=== PATIENT | female | born 1960 | race Caucasian/White ===

== ENCOUNTER 2018-04-22 01:23 | Emergency (ER) | payer OTHER ==
[2018-04-22 01:58] VITALS: BP 139/71; PULSE 94; TEMP 97.3; BMI 25.6
[2018-04-22] MEDS ORDERED: ALPRAZolam 0.25 MG TABLET PO ONE ×2 (02:06→03:58)
--- NOTE | 2018-04-22 02:10 | PDOC ---
History of Present Illness - General Chief Complaint: Psychiatric Stated Complaint: ANXIETY Time Seen by Provider: 04/22/18 01:41 - History of Present Illness Initial Comments: Shanika Damon is a 58yo woman with a PMH of GERD, anxiety, and depression who presents reporting an anxiety attack. She says that her symtpoms started one week ago and have been worsening throughout the week. Since yesterday, she has felt extremely nervous, unable to sleep or eat. She reports chest pain, SOB, and a clenched jaw as well. She has the exact same symptoms every time she has the anxiety attacks. She has been taking her clonazepam at home without resolution of her symptoms. Past History - Past Medical History Allergies/Adverse Reactions: Allergies Allergy/AdvReac Type Severity Reaction Status Date / Time Iodinated Contrast- Oral and Allergy Verified 04/22/18 01:51 IV Dye [IV Dye, Iodine Containing Contrast ] ondansetron HCl [From Zofran] Allergy "muscle Verified 04/22/18 01:51 stiffness" prochlorperazine edisylate Allergy "muscle Verified 04/22/18 01:51 [From Compazine] stiffness" prochlorperazine maleate Allergy "muscle Verified 04/22/18 01:51 [From Compazine] stiffness" Home Medications: Ambulatory Orders clonazePAM [Klonopin -] 0.5 mg PO DAILY 08/11/15 Paroxetine HCl [Paxil] 20 mg PO DAILY 04/22/18 Anemia: No Asthma: No Cancer: No Cardiac Disorders: No CVA: No COPD: No CHF: No Dementia: No Diabetes: No GI Disorders: Yes (acid reflux) Disorders: No HTN: No Hypercholesterolemia: No Liver Disease: No Psychiatric Problems: Yes (Depression) Seizures: No Thyroid Disease: No - Surgical History Abdominal Surgery: No Appendectomy: No Cardiac Surgery: No Cholecystectomy: No Lung Surgery: No Neurologic Surgery: No Orthopedic Surgery: No - Suicide/Smoking/Psychosocial Hx Smoking Status: No Smoking History: Never smoked Have you smoked in the past 12 months: No Number of Cigarettes Smoked Daily: 0 If you are a former smoker, when did you quit?: 4yrs ago Information on smoking cessation initiated: No Hx Alcohol Use: No Drug/Substance Use Hx: No Hx Substance Use Treatment: No Review of Systems - Review of Systems Comments:: General: No fevers, no chills, no weight or appetite change, no malaise HEENT: No changes in vision, no changes in hearing, no congestion, no sore throat CV: +chest pain, +palpitations, no LE edema Pulm: +SOB, no cough, no wheezing GI: +nausea/vomiting, no change in bowel habits, no melena : No frequency, no urgency, no dysuria Musc: No back pain, no joint swelling, no recent injury Skin: No rash, no lesions, no erythema Endo: No excessive thirst, no heat/cold intolerance Heme: No unusual bruising or bleeding, no swollen glands Neuro: No syncope, no numbness/tingling, no focal weakness Vasc: No claudication Psych: +anxiety, +nervous *Physical Exam - Vital Signs Last Vital Signs Temp Pulse Resp BP Pulse Ox 97.3 F L 94 H 19 139/71 98 04/22/18 01:23 04/22/18 01:23 04/22/18 01:23 04/22/18 01:23 04/22/18 01:23 - Physical Exam Comments: General: Appears very anxious HEENT: PERRL, EOMI, MMM, voice normal, normal neck ROM, no LAD Cards: RRR, no murmur appreciated Pulm: Comfortable on room air, clear to auscultation bilaterally Abd: Soft, nontender, nondistended Ext: Atraumatic. No LE edema. ROM intact. Strength 5/5 and equal bilaterally Vasc: Extremities WWP. Skin: Normal color, no rashes or lesions Neuro: A&Ox3, CN grossly intact, normal speech, motor/sensory grossly intact and symmetric Psych: Anxious Moderate Sedation - Procedure Monitoring Vital Signs: Procedure Monitoring Vital Signs Temperature 97.3 F L 04/22/18 01:23 Pulse Rate 94 H 04/22/18 01:23 Respiratory Rate 19 04/22/18 01:23 Blood Pressure 139/71 04/22/18 01:23 O2 Sat by Pulse Oximetry (%) 98 04/22/18 01:23 ED Treatment Course - LABORATORY CBC & Chemistry Diagram: 04/22/18 02:26 04/22/18 02:26 - RADIOLOGY Radiology Studies Ordered: Category Date Time Status CHEST X-RAY PORTABLE* [RAD] Stat Radiology 04/22/18 01:48 Ordered Medical Decision Making - Medical Decision Making 04/22/18 02:06 Shanika Damon is a 58yo woman with a PMH of GERD, depression, anxiety who presents with worsening anxiety for the past week. She also notes chest pain, SOB, and nausea/vomiting. - Reports that her symptoms are typical of her anxiety attacks; she has these same symptoms every time - Most likely known anxiety, but given age and symptoms need to rule out cardiac pathology - CBC, CMP, trop, EKG, CXR ordered - 0.25mg xanax for anxiety 04/22/18 03:24 - Feels significantly improved. - Labs pending 04/22/18 03:56 - Labs unremarkable. Trop negative. As symptoms have been present for over one day, one negative trop is sufficient to r/o ACS. - EKG and CXR reviewed, no concerning abnormalities noted - Reporting return of anxiety symptoms. Will give additional 0.25 alprazolam. Discussed follow up with regular psychiatrist within the next week for worsening symptoms, and Ms Damon agrees. Discussed with Dr Randolph. Dominique Wong PGY1 *DC/Admit/Observation/Transfer Diagnosis at time of Disposition: Anxiety - Discharge Dispostion Condition at time of disposition: Fair Decision to Admit order: No - Referrals Referrals: Marium Regan MD [Primary Care Provider] - - Patient Instructions Printed Discharge Instructions: DI for Anxiety -- Adult Additional Instructions: Discharge Instructions: - You were seen in the emergency department with anxiety - You had blood tests, an EKG and a chest xray to make sure there was not a medical cause of your anxiety, but all of your tests were normal - It is recommended that you make an appointment with a endocrinologist to have a cardiac evaluation to make sure there is no underlying heart disease. - You should make an appointment to follow up with your psychiatrist as soon as possible, ideally within the next 2-3 days. - Seek immediate medical care if you have any additional chest pain, shortness of breath, or any other medical emergency. - Post Discharge Activity
[2018-04-22] MEDS ORDERED: ALPRAZolam 0.25 MG TABLET ONE ×2 (02:26→04:12)
[2018-04-22] MEDS ORDERED: SODIUM CHLORIDE 0.9% 500 ML INFUS.BAG IV ONE (02:39)
--- NOTE | 2018-04-22 02:58 | PDOC ---
Attending Attestation - Resident Resident Name: Dominique Wong - ED Attending Attestation I have performed the following: I have examined & evaluated the patient, The case was reviewed & discussed with the resident, I agree w/resident's findings & plan - HPI HPI: 04/22/18 03:38 58 yo female with anxiety and associated chest pressure, pt states she has similar symptoms with all of her panic attacks. - Physicial Exam PE: 04/22/18 03:39 agree with resident exam - Medical Decision Making 04/22/18 03:39 58 yo female with c/o panic attacks and chest tightness EKG shows a nsr at 77 bpm pt improved after xanax 0.25 mg plan for d/c home with psychiatric follow up
[2018-04-22 03:04] LABS: BASO % 0.2 % (0-2.0); EOS % 0.2 % (0-4.5); HEMATOCRIT 39.6 % (32.4-45.2); LYMPH % 19.1 % (8-40); MCH 33.4 pg (25.7-33.7); MCHC 35.2 g/dl (32.0-36.0); MEAN CELL VOLUME 94.9 fl (80-96); MEAN PLT VOLUME 9.8 fl (7.5-11.1); MONO % 5.6 % (3.8-10.2); NEUT % 74.9 % (42.8-82.8); PLATELET COUNT 200 K/MM3 (134-434); RBC 4.18 M/mm3 (3.60-5.2); RDW 12.5 % (11.6-15.6); WHITE BLOOD COUNT 4.7 K/mm3 (4.0-10.0)
[2018-04-22 03:36] LABS: ALBUMIN 4.1 g/dl (3.4-5.0); ALK PHOS 103 U/L (45-117); ANION GAP 7 MMOL/L (8-16); BILIRUBIN,TOTAL 0.4 mg/dL (0.2-1); BLOOD UREA NITROGEN 9 mg/dL (7-18); CALCIUM 8.8 mg/dL (8.5-10.1); CHLORIDE 107 mmol/L (98-107); CO2 27 mmol/L (21-32); CREATININE 0.7 mg/dL (0.55-1.3); GLUCOSE,RANDOM 123 mg/dL (74-106); POTASSIUM 3.7 mmol/L (3.5-5.1); SGOT/AST 24 U/L (15-37); SGPT/ALT 29 U/L (13-61); SODIUM 141 mmol/L (136-145)
--- NOTE | 2018-04-22 14:16 | EKG ---
Test Reason : Blood Pressure : / mmHG Vent. Rate : 077 BPM Atrial Rate : 077 BPM P-R Int : 140 ms QRS Dur : 072 ms QT Int : 378 ms P-R-T Axes : 033 003 026 degrees QTc Int : 427 ms NORMAL SINUS RHYTHM NORMAL ECG WHEN COMPARED WITH ECG OF 23-OCT-2013 21:14, NO SIGNIFICANT CHANGE WAS FOUND Confirmed by MILLI MANZANO MD ([id number]) on 04/22/2018 2:16:07 PM Referred By: Confirmed By:MILLI MANZANO MD
== END 2018-04-22 04:31 | disposition home or self-care (01) ==
LOC: JER 01:23
PROC: 3E0337Z Introduction of Electrolytic and Water Balance Substance into Peripheral Vein, Percutaneous Approach (ICD-10-PCS; principal; 2018-04-22)
DX: F41.9 Anxiety disorder, unspecified (principal); F32.9 Major depressive disorder, single episode, unspecified; K21.9 Gastro-esophageal reflux disease without esophagitis
CPT/HCPCS: 36415; 71045-TC-FY; 80053; 82550; 84484; 85025; 93005; 93010; 99282-25

== ENCOUNTER 2021-02-21 13:53 | Inpatient (IN) | payer OTHER ==
[2021-02-21 14:30] VITALS: BMI 23.8
[2021-02-21] MEDS ORDERED: SODIUM CHLORIDE 1,769 ML IV ONE (16:32)
[2021-02-21] MEDS ORDERED: MIDAZOLAM HCL 2 MG/2 ML SINGLE DOSE VIAL IVPUSH ONE (16:54)
[2021-02-21] MEDS ORDERED: MIDAZOLAM HCL 2 MG/2 ML SINGLE DOSE VIAL ONE (16:57)
[2021-02-21 17:23] LABS: BASO % 0.5 % (0-2.0); EOS % 0.4 % (0-4.5); HEMATOCRIT 39.5 % (32.4-45.2); HEMOGLOBIN 13.1 GM/dL (10.7-15.3); LYMPH % 28.2 % (8-40); MCH 31.7 pg (25.7-33.7); MCHC 33.3 g/dl (32.0-36.0); MEAN CELL VOLUME 95.2 fl (80-96); MONO % 7.8 % (3.8-10.2); NEUT % 63.1 % (42.8-82.8); PLATELET COUNT 245 10^3/uL (134-434); RBC 4.15 M/mm3 (3.60-5.2); RDW 13.1 % (11.6-15.6); WHITE BLOOD COUNT 5.4 K/mm3 (4.0-10.0)
[2021-02-21 17:36] LABS: INR 1.06 (0.83-1.09); PROTHROMBIN TIME (PATIENT) 12.4 SEC (9.7-13.0)
[2021-02-21 17:39] LABS: ACTIVATED PTT 28.4 SECONDS (25.2-36.5)
[2021-02-21 17:42] LABS: CHLORIDE 108 mmol/L (98-107); SODIUM 141 mmol/L (136-145)
[2021-02-21 17:43] LABS: CALCIUM 9.3 mg/dL (8.5-10.1)
[2021-02-21 17:44] LABS: ANION GAP 5 MMOL/L (8-16); BLOOD UREA NITROGEN 9.1 mg/dL (7-18); CO2 28 mmol/L (21-32); GLUCOSE,RANDOM 95 mg/dL (74-106)
[2021-02-21 17:47] LABS: CREATININE 0.7 mg/dL (0.55-1.3); SGOT/AST 31 U/L (15-37); SGPT/ALT 29 U/L (13-61)
[2021-02-21 17:49] LABS: BILIRUBIN,TOTAL 0.5 mg/dL (0.2-1); TOT PROT 7.2 g/dl (6.4-8.2)
[2021-02-21 17:50] LABS: ALK PHOS 93 U/L (45-117)
[2021-02-21] MEDS ORDERED: ACETAMINOPHEN 325 MG TABLET (FP) PO ONE (17:59)
[2021-02-21] MEDS ORDERED: ACETAMINOPHEN 325 MG TABLET (FP) ONE (19:37)
[2021-02-21] MEDS ORDERED: POLYETHYLENE GLYCOL (HEALTHYLAX) 3350 17 GM PACKET PO PRN (20:02)
[2021-02-21 20:14] LABS: BF GLUCOSE (CSF ONLY) 61 mg/dL (40-70)
[2021-02-21 20:33] LABS: CSF APPEARANCE CLEAR (CLEAR)
[2021-02-21 20:50] LABS: CSF WBC 0 mm3 (0-5)
[2021-02-21 20:51] LABS: CSF COLOR COLORLESS (COLORLESS)
[2021-02-21] MEDS ORDERED: HEPARIN NA (PORCINE) 5,000 UNITS/ML 1ML VIAL ONE (21:37)
[2021-02-21] MEDS ORDERED: POLYETHYLENE GLYCOL (HEALTHYLAX) 3350 17 GM PACKET ONE (21:37)
[2021-02-21] MEDS ORDERED: clonazePAM 0.5 MG TABLET PO PRN (21:42)
[2021-02-21] MEDS ORDERED: ACETAMINOPHEN INJECTION 100 ML IVPB ONE (22:21)
[2021-02-21] MEDS: ACETAMINOPHEN 1000 MG/100 ML VIAL IVPB PRN (22:23)
[2021-02-22 01:05] LABS: PH,URINE 6.5 (5.0-8.0); URINE APPEARANCE CLEAR; URINE BILIRUBIN NEGATIVE (NEGATIVE); URINE COLOR YELLOW; URINE GLUCOSE (UA) NEGATIVE (NEGATIVE); URINE KETONE TRACE (NEGATIVE); URINE LEUK ESTERASE NEGATIVE (NEGATIVE); URINE NITRITE NEGATIVE (NEGATIVE); URINE PROTEIN NEGATIVE (NEGATIVE); URINE UROBILINOGEN 0.2 mg/dL (0.2-1.0)
[2021-02-22] MEDS ORDERED: ACETAMINOPHEN INJECTION 100 ML IVPB ONE (06:47)
[2021-02-22] MEDS: ACETAMINOPHEN 1000 MG/100 ML VIAL IVPB PRN (06:53)
[2021-02-22] MEDS ORDERED: oxyCODONE HCL 5 MG TABLET ONE (09:16)
[2021-02-22] MEDS ORDERED: diazePAM 5 MG TABLET ONE (09:17)
[2021-02-22] MEDS: oxyCODONE HCL 5 MG TABLET PO PRN ×2 (09:29→16:18)
[2021-02-22] MEDS: diazePAM 5 MG TABLET PO PRN ×2 (09:29→12:04)
[2021-02-22] MEDS ORDERED: GABAPENTIN 300 MG CAPSULE PO SCH (10:00)
[2021-02-22] MEDS ORDERED: HEPARIN NA (PORCINE) 5,000 UNITS/ML 1ML VIAL SQ SCH (10:00)
[2021-02-22] MEDS: ACETAMINOPHEN 325 MG TABLET (FP) PO PRN ×2 (16:20→22:11)
[2021-02-23] MEDS: diazePAM 5 MG TABLET PO PRN ×2 (07:15→12:31)
[2021-02-23] MEDS: ACETAMINOPHEN 325 MG TABLET (FP) PO PRN (07:19)
[2021-02-23] MEDS: oxyCODONE HCL 5 MG TABLET PO PRN ×2 (08:33→15:52)
[2021-02-24] MEDS: diazePAM 5 MG TABLET PO PRN ×2 (01:52→10:06)
[2021-02-24] MEDS: oxyCODONE HCL 5 MG TABLET PO PRN ×4 (01:53→22:12)
[2021-02-24] MEDS ORDERED: LORazepam 0.5 MG TABLET PO ONE (06:16)
[2021-02-25] MEDS: diazePAM 5 MG TABLET PO PRN (04:57)
[2021-02-25] MEDS: oxyCODONE HCL 5 MG TABLET PO PRN (08:13)
[2021-02-25] MEDS: ACETAMINOPHEN 325 MG TABLET (FP) PO PRN (08:14)
[2021-02-25] MEDS ORDERED: GENTAMICIN SO4 80 MG/2 ML VIAL ONE ×3 (08:49→09:17)
[2021-02-25] MEDS ORDERED: BUPIVACAINE HCL/PF 0.5% (5MG/ML) 10 ML VIAL ONE ×2 (08:51→09:17)
[2021-02-25] MEDS ORDERED: THROMBIN (BOVINE) 20,000 UNIT VIAL TP ONE ×2 (08:51→09:17)
[2021-02-25] MEDS ORDERED: VANCOMYCIN 1,000 MG VIAL (RESTRICTED TO ID ONLY) ONE (08:52)
[2021-02-25] MEDS ORDERED: LIDOCAINE 1%/EPI 1:100000 (20 ML MULTI DOSE VIAL) ONE ×2 (08:52→13:46)
[2021-02-25] MEDS ORDERED: fentaNYL CITRATE 250 MCG/5 ML VIAL ONE (09:15)
[2021-02-25] MEDS ORDERED: MIDAZOLAM HCL 2 MG/2 ML SINGLE DOSE VIAL ONE ×2 (09:15→14:24)
[2021-02-25] MEDS ORDERED: LIDOCAINE 1%/EPI 1:100000 (50 ML MULTI DOSE VIAL) ONE ×3 (09:16→13:46)
[2021-02-25] MEDS ORDERED: SCOPOLAMINE HYDROBROMIDE 1 PATCH PATCH.TD72 ONE (09:19)
[2021-02-25] MEDS ORDERED: VANCOMYCIN 1,000 MG VIAL (RESTRICTED TO ID ONLY) IVPB ONE (09:30)
[2021-02-25] MEDS ORDERED: ceFAZolin SODIUM 1 GM VIAL IVPB ONE (09:45)
[2021-02-25] MEDS ORDERED: LIDOCAINE 1%/EPI 1:100000 (20 ML MULTI DOSE VIAL) INF ONE ×2 (10:00→11:45)
[2021-02-25] MEDS ORDERED: BUPIVACAINE LIPOSOME/PF (EXPAREL) 266 MG/20 ML VIAL ONE (10:39)
[2021-02-25] MEDS ORDERED: THROMBIN (BOVINE) 5,000 UNIT VIAL TP ONE (12:14)
[2021-02-25] MEDS ORDERED: BUPIVACAINE HCL/PF 0.5% (5 MG/ML) 30 ML VIAL IJ ONE (12:58)
[2021-02-25] MEDS ORDERED: BUPIVACAINE LIPOSOME/PF (EXPAREL) 266 MG/20 ML VIAL NR ONE (12:58)
[2021-02-25] MEDS ORDERED: NEOSTIGMINE METHYLSULFATE 0.5 MG/1 ML - 10 ML MDV ONE (13:15)
[2021-02-25] MEDS ORDERED: LIDOCAINE HCL 1% EPINEPHRINE 1:200,000 30 ML VIAL (PF) ONE (13:47)
[2021-02-25] MEDS ORDERED: MIDAZOLAM HCL 2 MG/2 ML SINGLE DOSE VIAL IVPUSH ONE (14:20)
[2021-02-25] MEDS ORDERED: DEXAMETHASONE SOD PHOSPHATE 4 MG/1 ML VIAL IVPUSH PRN (14:40)
[2021-02-25] MEDS ORDERED: oxyCODONE HCL 5 MG TABLET PO PRN ×3 (14:46→15:50)
[2021-02-25] MEDS ORDERED: ACETAMINOPHEN 325 MG TABLET (FP) PO PRN (14:46)
[2021-02-25] MEDS ORDERED: HYDROmorphone *PCA* 10MG/50ML DISP.SYRIN ONE (14:52)
[2021-02-25] MEDS ORDERED: HYDROmorphone *PCA* 10MG/50ML DISP.SYRIN PCA ONE (15:00)
[2021-02-25] MEDS ORDERED: ONDANSETRON 4 MG/2 ML VIAL IVPUSH PRN (15:50)
[2021-02-25] MEDS ORDERED: morphine CARPU-JECT 4 MG/1 ML DISP.SYRIN IVPUSH PRN (15:50)
[2021-02-25] MEDS ORDERED: diphenhydrAMINE HCL 25 MG CAPSULE (FP) PO PRN (15:50)
[2021-02-25] MEDS ORDERED: LACTATED RINGERS SOLUTION 1,000 ML/1,000 ML INFUS.BAG IV SCH (16:00)
[2021-02-25] MEDS ORDERED: CEFAZOLIN 1 GM/D5W 1 GM/50 ML BAG IVPB SCH (18:00)
[2021-02-25] MEDS: HEPARIN NA (PORCINE) 5,000 UNITS/ML 1ML VIAL SQ SCH (18:15)
[2021-02-25] MEDS ORDERED: CEFAZOLIN 1 GM in DEXTROSE 5%-WATER - 50 ML IVPB SCH (18:15)
[2021-02-25] MEDS: HYDROmorphone *PCA* 10MG/50ML DISP.SYRIN PCA SCH (18:15)
[2021-02-25] MEDS ORDERED: DEXTROSE 5%-WATER - 50 ML IVPB ONE (18:32)
[2021-02-25] MEDS ORDERED: ceFAZolin SODIUM 1 GM VIAL ONE (18:32)
[2021-02-25] MEDS: CEFAZOLIN 1 GM in DEXTROSE 5%-WATER - 50 ML IVPB SCH (18:34)
[2021-02-25] MEDS ORDERED: PT OWN MED DRAWER 7, Y5N ONE (20:23)
[2021-02-25] MEDS: DOCUSATE SODIUM 100 MG CAPSULE (FP) PO SCH (21:05)
[2021-02-26] MEDS ORDERED: ceFAZolin SODIUM 1 GM VIAL ONE ×3 (00:54→17:18)
[2021-02-26] MEDS ORDERED: DEXTROSE 5%-WATER - 50 ML IVPB ONE ×3 (00:54→17:18)
[2021-02-26] MEDS: CEFAZOLIN 1 GM in DEXTROSE 5%-WATER - 50 ML IVPB SCH ×3 (01:02→17:53)
[2021-02-26] MEDS: HEPARIN NA (PORCINE) 5,000 UNITS/ML 1ML VIAL SQ SCH ×3 (01:03→17:53)
[2021-02-26] MEDS: diazePAM 5 MG TABLET PO PRN ×2 (04:27→21:58)
[2021-02-26] MEDS: DOCUSATE SODIUM 100 MG CAPSULE (FP) PO SCH ×3 (06:50→21:15)
[2021-02-26 08:52] LABS: HEMATOCRIT 27.9 % (32.4-45.2); HEMOGLOBIN 9.6 GM/dL (10.7-15.3); MCH 32.8 pg (25.7-33.7); MCHC 34.5 g/dl (32.0-36.0); MEAN CELL VOLUME 95.2 fl (80-96); MEAN PLT VOLUME 8.7 fl (7.5-11.1); PLATELET COUNT 167 10^3/uL (134-434); RBC 2.93 M/mm3 (3.60-5.2); RDW 13.2 % (11.6-15.6)
[2021-02-26 09:04] LABS: CALCIUM 8.3 mg/dL (8.5-10.1)
[2021-02-26 09:05] LABS: BLOOD UREA NITROGEN 5.4 mg/dL (7-18)
[2021-02-26 09:08] LABS: CREATININE 0.5 mg/dL (0.55-1.3)
[2021-02-26] MEDS ORDERED: POLYETHYLENE GLYCOL (HEALTHYLAX) 3350 17 GM PACKET PO PRN (10:00)
[2021-02-26] MEDS: FOLIC ACID 1 MG TABLET (FP) PO SCH (10:51)
[2021-02-26] MEDS: FERROUS SO4 325 MG TABLET (FP) PO SCH (10:51)
[2021-02-26] MEDS: PHENAZOPYRIDINE HCL 100 MG TABLET (FP) PO SCH ×3 (10:51→17:53)
[2021-02-26] MEDS: HYDROmorphone *PCA* 10MG/50ML DISP.SYRIN PCA SCH (15:52)
[2021-02-27] MEDS ORDERED: ceFAZolin SODIUM 1 GM VIAL ONE ×2 (00:39→08:48)
[2021-02-27] MEDS ORDERED: DEXTROSE 5%-WATER - 50 ML IVPB ONE ×2 (00:40→08:48)
[2021-02-27] MEDS ORDERED: LORazepam 0.5 MG TABLET PO ONE ×2 (00:55→06:49)
[2021-02-27] MEDS: HEPARIN NA (PORCINE) 5,000 UNITS/ML 1ML VIAL SQ SCH ×2 (01:08→09:42)
[2021-02-27] MEDS: CEFAZOLIN 1 GM in DEXTROSE 5%-WATER - 50 ML IVPB SCH ×2 (01:08→09:42)
[2021-02-27] MEDS: diazePAM 5 MG TABLET PO PRN (05:32)
[2021-02-27] MEDS: DOCUSATE SODIUM 100 MG CAPSULE (FP) PO SCH ×2 (05:34→14:40)
[2021-02-27 08:33] LABS: BASO % 0.2 % (0-2.0); HEMATOCRIT 36.7 % (32.4-45.2); HEMOGLOBIN 12.6 GM/dL (10.7-15.3); LYMPH % 11.5 % (8-40); MCH 32.7 pg (25.7-33.7); MCHC 34.3 g/dl (32.0-36.0); MEAN CELL VOLUME 95.3 fl (80-96); MEAN PLT VOLUME 9.6 fl (7.5-11.1); MONO % 8.6 % (3.8-10.2); NEUT % 79.7 % (42.8-82.8); PLATELET COUNT 184 10^3/uL (134-434); RBC 3.85 M/mm3 (3.60-5.2); WHITE BLOOD COUNT 9.5 K/mm3 (4.0-10.0)
[2021-02-27 09:31] LABS: CALCIUM 8.8 mg/dL (8.5-10.1)
[2021-02-27 09:32] LABS: BLOOD UREA NITROGEN 4.7 mg/dL (7-18)
[2021-02-27 09:34] LABS: CREATININE 0.6 mg/dL (0.55-1.3)
[2021-02-27 09:35] LABS: BILIRUBIN,TOTAL 0.7 mg/dL (0.2-1); TOT PROT 6.3 g/dl (6.4-8.2)
[2021-02-27] MEDS: PHENAZOPYRIDINE HCL 100 MG TABLET (FP) PO SCH ×2 (09:42→14:40)
[2021-02-27] MEDS: FOLIC ACID 1 MG TABLET (FP) PO SCH (09:43)
[2021-02-27] MEDS: FERROUS SO4 325 MG TABLET (FP) PO SCH (09:43)
[2021-02-27 09:55] LABS: ALBUMIN 3.1 g/dl (3.4-5.0)
[2021-02-27] MEDS ORDERED: PCA PUMP NR ONE (12:16)
[2021-02-27 14:32] VITALS: BP 121/61; PULSE 96; TEMP 99.5
[2021-02-27] MEDS ORDERED: MIRTAZAPINE 15 MG TABLET (FP) PO SCH (22:00)
== END 2021-02-27 16:07 | disposition home or self-care (01) | DRG 321 ==
LOC: JER 13:53 → JERBED 19:17 → UNDOADMOB 19:17 → INTOOBSV 19:17 → J4S 02-22 11:37 → JERBED 02-22 11:37 → J4S 02-22 11:44 → OBSVTOIN 02-25 08:00
PROVIDERS: ADMIT Internal Medicine; ATTEND Internal Medicine
PROC: 0PB30ZZ Excision of Cervical Vertebra, Open Approach (ICD-10-PCS; 2021-02-25)
PROC: 0RG2071 Fusion of 2 or more Cervical Vertebral Joints with Autologous Tissue Substitute, Posterior Approach, Posterior Column, Open Approach (ICD-10-PCS; 2021-02-25)
PROC: 4A1004G Monitoring of Central Nervous Electrical Activity, Intraoperative, Open Approach (ICD-10-PCS; 2021-02-25)
PROC: 0RG10A0 Fusion of Cervical Vertebral Joint with Interbody Fusion Device, Anterior Approach, Anterior Column, Open Approach (ICD-10-PCS; principal; 2021-02-25 09:00)
PROC: 01N10ZZ Release Cervical Nerve, Open Approach (ICD-10-PCS; 2021-02-25 09:00)
DX: M47.12 Other spondylosis with myelopathy, cervical region (principal); M50.20 Other cervical disc displacement, unspecified cervical region; M53.2X2 Spinal instabilities, cervical region; N39.0 Urinary tract infection, site not specified; F41.9 Anxiety disorder, unspecified; I25.10 Atherosclerotic heart disease of native coronary artery without angina pectoris; M40.209 Unspecified kyphosis, site unspecified
CPT/HCPCS: 36415; 70450-TC; 71045-TC-FY; 72125-TC; 72156-TC; 76000-TC-FY; 80048; 80053; 81003; 82945; 83605; 84157; 84484; 85025; 85027; 85610; 85730; 86850; 86900; 86901; 87040; 87070; 87077; 87086; 87186; 87205; 87804; 93005; 93010; 94760; 97116-GP; 97161-GP; 99285-25; C9803; G0378; J0131; J1644; U0003; U0005

== ENCOUNTER 2021-04-03 08:10 | Emergency (ER) | payer OTHER ==
[2021-04-03 08:49] VITALS: BP 128/78; PULSE 88; TEMP 98.6; BMI 24.7
[2021-04-03] MEDS ORDERED: MAG HYDROX/ALH/SMC/DPHA/LIDO 240 ML MOUTHWASH MM ONE (08:58)
[2021-04-03] MEDS ORDERED: FAMOTIDINE 20 MG TABLET PO ONE (08:58)
[2021-04-03] MEDS ORDERED: MAG HYDROX/AL HYDROX/SIMETH 30 ML UNIT-DOSE CUP PO ONE (08:58)
[2021-04-03] MEDS ORDERED: FAMOTIDINE 20 MG TABLET ONE (09:10)
[2021-04-03] MEDS ORDERED: MAG HYDROX/ALH/SMC/DPHA/LIDO 240 ML MOUTHWASH MM SCH (12:00)
[2021-04-04 13:07] LABS: SARS-CoV-2 NAA Detected (Not Detected)
== END 2021-04-03 12:42 | disposition home or self-care (01) ==
LOC: JER 08:10
DX: U07.1 COVID-19 (principal); J02.9 Acute pharyngitis, unspecified
CPT/HCPCS: 87070; 99283-25; C9803; U0003; U0005

== ENCOUNTER 2021-05-04 11:18 | Emergency (ER) | payer OTHER ==
[2021-05-04 11:34] VITALS: BP 130/72; PULSE 86; BMI 21.9
[2021-05-04 11:38] VITALS: TEMP 97.6
[2021-05-04] MEDS ORDERED: SODIUM CHLORIDE 1,000 ML IV STA (12:36)
[2021-05-04 12:48] LABS: EPI CELLS 5 /uL (0-25.1); HYALINE CASTS 0 /uL (0-3.1); PH,URINE 6.5 (5.0-8.0); URINE APPEARANCE CLEAR; URINE BILIRUBIN NEGATIVE (NEGATIVE); URINE COLOR DK YELLOW; URINE GLUCOSE (UA) NEGATIVE (NEGATIVE); URINE KETONE NEGATIVE (NEGATIVE); URINE LEUK ESTERASE 2+ (NEGATIVE); URINE NITRITE POSITIVE (NEGATIVE); URINE PROTEIN NEGATIVE (NEGATIVE); URINE RBC 3 /uL (0-23.9); URINE WBC 134 /uL (0-25.8)
[2021-05-04 12:59] LABS: URINE BACTERIA 8.1 /uL (0-1359)
[2021-05-04 13:17] LABS: BASO % 0.6 % (0-2.0); EOS % 0.2 % (0-4.5); HEMATOCRIT 36.2 % (32.4-45.2); HEMOGLOBIN 12.3 GM/dL (10.7-15.3); LYMPH % 15.4 % (8-40); MCH 32.3 pg (25.7-33.7); MEAN CELL VOLUME 95.1 fl (80-96); MEAN PLT VOLUME 8.5 fl (7.5-11.1); MONO % 7.9 % (3.8-10.2); NEUT % 75.9 % (42.8-82.8); PLATELET COUNT 209 10^3/uL (134-434); RBC 3.81 M/mm3 (3.60-5.2); RDW 13.7 % (11.6-15.6); WHITE BLOOD COUNT 4.9 K/mm3 (4.0-10.0)
[2021-05-04 13:35] LABS: CALCIUM 9.4 mg/dL (8.5-10.1)
[2021-05-04 13:36] LABS: BLOOD UREA NITROGEN 8.7 mg/dL (7-18)
[2021-05-04 13:39] LABS: CREATININE 0.7 mg/dL (0.55-1.3)
[2021-05-04 13:40] LABS: BILIRUBIN,TOTAL 0.4 mg/dL (0.2-1); TOT PROT 6.9 g/dl (6.4-8.2)
== END 2021-05-04 14:23 | disposition home or self-care (01) ==
LOC: JER 11:18
PROC: 3E0337Z Introduction of Electrolytic and Water Balance Substance into Peripheral Vein, Percutaneous Approach (ICD-10-PCS; principal; 2021-05-04)
DX: N39.0 Urinary tract infection, site not specified (principal)
CPT/HCPCS: 36415; 80053; 81003; 85025; 87086; 96360; 99284-25

== ENCOUNTER 2021-07-13 10:37 | Emergency (ER) | payer OTHER ==
[2021-07-13 10:54] VITALS: BP 146/56; PULSE 96; TEMP 98.1; BMI 22.8
[2021-07-13] MEDS ORDERED: SODIUM CHLORIDE 0.9% 500 ML INFUS.BAG IV ONE (11:59)
[2021-07-13 12:36] LABS: URINE APPEARANCE CLEAR; URINE BILIRUBIN NEGATIVE (NEGATIVE); URINE COLOR YELLOW; URINE GLUCOSE (UA) NEGATIVE (NEGATIVE); URINE KETONE NEGATIVE (NEGATIVE); URINE LEUK ESTERASE NEGATIVE (NEGATIVE); URINE NITRITE NEGATIVE (NEGATIVE); URINE PROTEIN NEGATIVE (NEGATIVE); URINE UROBILINOGEN 0.2 mg/dL (0.2-1.0)
[2021-07-13 12:37] LABS: BASO % 0.5 % (0-2.0); EOS % 0.2 % (0-4.5); HEMATOCRIT 38.9 % (32.4-45.2); HEMOGLOBIN 12.9 GM/dL (10.7-15.3); LYMPH % 21.4 % (8-40); MCH 31.4 pg (25.7-33.7); MCHC 33.3 g/dl (32.0-36.0); MEAN CELL VOLUME 94.5 fl (80-96); MEAN PLT VOLUME 8.7 fl (7.5-11.1); MONO % 5.7 % (3.8-10.2); NEUT % 72.2 % (42.8-82.8); PLATELET COUNT 281 10^3/uL (134-434); RBC 4.11 M/mm3 (3.60-5.2); RDW 13.3 % (11.6-15.6); WHITE BLOOD COUNT 4.7 K/mm3 (4.0-10.0)
[2021-07-13 13:02] LABS: BLOOD UREA NITROGEN 17.2 mg/dL (7-18); CALCIUM 9.3 mg/dL (8.5-10.1)
[2021-07-13 13:06] LABS: CREATININE 0.8 mg/dL (0.55-1.3)
[2021-07-13 13:07] LABS: BILIRUBIN,TOTAL 0.6 mg/dL (0.2-1); TOT PROT 7.1 g/dl (6.4-8.2)
== END 2021-07-13 15:51 | disposition home or self-care (01) ==
LOC: JER 10:37
DX: M54.50 Low back pain, unspecified (principal)
CPT/HCPCS: 36415; 74176-TC; 80053; 81003; 85025; 87086; 93005; 93010; 99284-25

== ENCOUNTER 2021-09-06 07:41 | Emergency (ER) | payer OTHER ==
[2021-09-06 08:18] VITALS: BP 127/70; PULSE 92; BMI 21.9
[2021-09-06 08:22] VITALS: TEMP 97.7
[2021-09-06] MEDS ORDERED: diazePAM 2 MG TABLET PO ONE (08:33)
[2021-09-06] MEDS ORDERED: ALBUTEROL SO4 2.5/IPRATROPIUM 0.5 INH SOL 3 ML VIAL.NEB. NEB ONE ×2 (08:33→08:35)
[2021-09-06] MEDS ORDERED: ACETAMINOPHEN 1000 MG/100 ML BAG IVPB ONE (08:33)
[2021-09-06] MEDS ORDERED: diazePAM CARPU-JECT 10 MG/2 ML DISP.SYRIN IVPUSH ONE (08:36)
[2021-09-06] MEDS ORDERED: ACETAMINOPHEN INJECTION 100 ML IVPB ONE (08:36)
[2021-09-06] MEDS ORDERED: diazePAM CARPU-JECT 10 MG/2 ML DISP.SYRIN ONE (08:38)
[2021-09-06] MEDS ORDERED: SODIUM CHLORIDE 0.9% 500 ML INFUS.BAG IV ONE (08:50)
[2021-09-06 09:44] LABS: URINE APPEARANCE CLOUDY; URINE BILIRUBIN NEGATIVE (NEGATIVE); URINE COLOR YELLOW; URINE GLUCOSE (UA) NEGATIVE (NEGATIVE); URINE KETONE 1+ (NEGATIVE); URINE LEUK ESTERASE NEGATIVE (NEGATIVE); URINE NITRITE NEGATIVE (NEGATIVE); URINE PROTEIN TRACE (NEGATIVE); URINE UROBILINOGEN 0.2 mg/dL (0.2-1.0)
[2021-09-06 09:50] LABS: INR 1.12 (0.83-1.09); PROTHROMBIN TIME (PATIENT) 12.9 SEC (9.7-13.0)
[2021-09-06 09:51] LABS: BASO % 0.4 % (0-2.0); EOS % 1.4 % (0-4.5); HEMATOCRIT 40.5 % (32.4-45.2); HEMOGLOBIN 13.4 GM/dL (10.7-15.3); MCH 31.4 pg (25.7-33.7); MCHC 33.2 g/dl (32.0-36.0); MEAN CELL VOLUME 94.6 fl (80-96); MEAN PLT VOLUME 9.1 fl (7.5-11.1); NEUT % 74.2 % (42.8-82.8); PLATELET COUNT 250 10^3/uL (134-434); RBC 4.28 M/mm3 (3.60-5.2); RDW 13.3 % (11.6-15.6); WHITE BLOOD COUNT 6.2 K/mm3 (4.0-10.0)
[2021-09-06 09:52] LABS: OPIATES, URI NEGATIVE (NEGATIVE)
[2021-09-06 09:53] LABS: URINE BARBITURATES NEGATIVE (NEGATIVE)
[2021-09-06 09:53] LABS: ACTIVATED PTT 31.3 SECONDS (25.2-36.5)
[2021-09-06 09:55] LABS: METHADONE, UR NEGATIVE (NEGATIVE); PHENCYCLIDINE,URINE NEGATIVE (NEGATIVE); URINE BENZODIAZEPINES NEGATIVE (NEGATIVE)
[2021-09-06 09:57] LABS: COCAINE, UR NEGATIVE (NEGATIVE); URINE AMPHETAMINES NEGATIVE (NEGATIVE)
[2021-09-06 09:59] LABS: RETICULOCYTES 1.22 % (0.5-1.5)
[2021-09-06 10:09] LABS: CHLORIDE 107 mmol/L (98-107); SODIUM 143 mmol/L (136-145)
[2021-09-06 10:12] LABS: ALBUMIN 4.3 g/dl (3.4-5.0); ANION GAP 9 MMOL/L (8-16); CALCIUM 9.4 mg/dL (8.5-10.1); CO2 27 mmol/L (21-32); GLUCOSE,RANDOM 120 mg/dL (74-106)
[2021-09-06 10:13] LABS: BLOOD UREA NITROGEN 9.4 mg/dL (7-18); LIPASE 163 U/L (73-393); MAGNESIUM 2.1 mg/dL (1.8-2.4)
[2021-09-06 10:15] LABS: SGPT/ALT 36 U/L (13-61)
[2021-09-06 10:16] LABS: CREATININE 0.8 mg/dL (0.55-1.3); SGOT/AST 16 U/L (15-37)
[2021-09-06 10:17] LABS: BILIRUBIN,TOTAL 0.6 mg/dL (0.2-1); TOT PROT 7.3 g/dl (6.4-8.2)
[2021-09-06 10:18] LABS: ALK PHOS 92 U/L (45-117)
[2021-09-06] MEDS ORDERED: LORazepam 2 MG TABLET PO ONE (10:44)
[2021-09-06] MEDS ORDERED: LORazepam 1 MG TABLET ONE (11:04)
== END 2021-09-06 12:58 | disposition home or self-care (01) ==
LOC: JER 07:41
PROC: 3E0333Z Introduction of Anti-inflammatory into Peripheral Vein, Percutaneous Approach (ICD-10-PCS; principal; 2021-09-06)
PROC: 3E0F7GC Introduction of Other Therapeutic Substance into Respiratory Tract, Via Natural or Artificial Opening (ICD-10-PCS; 2021-09-06)
PROC: 3E033NZ Introduction of Analgesics, Hypnotics, Sedatives into Peripheral Vein, Percutaneous Approach (ICD-10-PCS; 2021-09-06)
DX: R11.2 Nausea with vomiting, unspecified (principal)
CPT/HCPCS: 0241U-QW; 36415; 70450-TC; 71045-TC-FY; 74176-TC; 80053; 80307; 81003; 82140; 83605; 83690; 83735; 84443; 84484; 85025; 85045; 85384; 85610; 85730; 86850; 86900; 86901; 87086; 93005; 93010; 94640; 96374; 96375; 99285-25

== ENCOUNTER 2022-09-19 21:50 | Emergency (ER) | payer OTHER ==
[2022-09-19 21:58] VITALS: BP 133/54; PULSE 92; RESP 18; TEMP 97.9; BMI 25.6
[2022-09-19 22:59] LABS: EPI CELLS 23 /uL (0-25.1); HYALINE CASTS 1 /uL (0-3.1); PH,URINE 5.5 (5.0-8.0); URINE APPEARANCE TURBID; URINE BILIRUBIN 1+ (NEGATIVE); URINE COLOR DK YELLOW; URINE GLUCOSE (UA) NEGATIVE (NEGATIVE); URINE KETONE TRACE (NEGATIVE); URINE LEUK ESTERASE 2+ (NEGATIVE); URINE NITRITE POSITIVE (NEGATIVE); URINE PROTEIN 3+ (NEGATIVE); URINE RBC 5151 /uL (0-23.9); URINE WBC 4209 /uL (0-25.8)
== END 2022-09-20 00:47 | disposition left against medical advice (07) ==
LOC: JER 21:50
DX: R30.0 Dysuria (principal); R10.32 Left lower quadrant pain
CPT/HCPCS: 81003; 87086; 99283-25